=== PATIENT | female | born 2000 | race Caucasian/White ===

== ENCOUNTER 2023-09-29 16:41 | Emergency (ER) | payer OTHER ==
[2023-09-29 16:59] VITALS: BP 100/65; PULSE 63; RESP 16; TEMP 98.5; BMI 26.5
[2023-09-29] MEDS ORDERED: ACETAMINOPHEN 500 MG TABLET (FP) ONE (18:12)
[2023-09-29] MEDS ORDERED: IBUPROFEN 600 MG TABLET (FP) PO ONE (18:12)
[2023-09-29] MEDS: IBUPROFEN 600 MG TABLET (FP) PO ONE (18:14)
[2023-09-29] MEDS: ACETAMINOPHEN 500 MG TABLET (FP) PO ONE (18:15)
== END 2023-09-29 19:31 | disposition home or self-care (01) ==
LOC: JERFT 16:41
DX: R09.81 Nasal congestion (principal); R51.9 Headache, unspecified; R05.9 Cough, unspecified; R52 Pain, unspecified; R68.83 Chills (without fever); R11.0 Nausea; J06.9 Acute upper respiratory infection, unspecified; Z20.822 Contact with and (suspected) exposure to COVID-19
CPT/HCPCS: 0241U-QW; 87651; 99283-25